=== PATIENT | female | born 1980 | race Caucasian/White ===

== ENCOUNTER 2024-02-23 09:48 | Emergency (ER) | payer OTHER ==
[2024-02-23 10:05] VITALS: RESP 16; BMI 27.6
[2024-02-23] MEDS: ACETAMINOPHEN 500 MG TABLET (FP) PO ONE (10:51)
[2024-02-23] MEDS ORDERED: ACETAMINOPHEN 500 MG TABLET (FP) ONE (10:54)
[2024-02-23 14:22] VITALS: BP 103/72; PULSE 67; TEMP 98.2
== END 2024-02-23 14:20 | disposition home or self-care (01) ==
LOC: FER 09:48
DX: S00.11XA Contusion of right eyelid and periocular area, initial encounter (principal); S30.0XXA Contusion of lower back and pelvis, initial encounter; S40.022A Contusion of left upper arm, initial encounter; M54.50 Low back pain, unspecified; M79.10 Myalgia, unspecified site; W10.8XXA Fall (on) (from) other stairs and steps, initial encounter
CPT/HCPCS: 70450-TC; 70486-TC; 72125-TC; 99284-25